=== PATIENT | male | born 1955 | race Two or more races ===

== ENCOUNTER 2020-05-31 05:39 | Inpatient (IN) | payer MEDICARE, MEDICAID ==
[2020-05-31] VITALS (14 sets, daily range): BP systolic 92–141; BP diastolic 52–69
[~2020-05-31] VITALS: Ht 165.1 cm; Wt 88.1 kg
[~2020-05-31 05:39] MED LIST: ALFUZOSIN HCL10 MG PO; ASPIRIN EC81 MG ORAL; GLIPIZIDE PO; LOSARTAN POTASS50 MG ORAL; METFORMIN PO; NEXIUM40 MG ORAL; ZOCOR20 M1 ORAL
--- NOTE | 2020-05-31 06:58 | Anethesia Preoperative Eval ---
Anesthesia Pre-op PMH/ROS General Date of Evaluation: May 31, 2020 Time of Evaluation: 07:31 Anesthesiologist: Jovi ASA Score: ASA 3 Mallampati Score Class I : Soft palate, uvula, fauces, pillars visible Class II: Soft palate, uvula, fauces visible Class III: Soft palate, base of uvula visible Class IV: Only hard plate visible Mallampati Classification: Class III Surgeon: Brian Diagnosis: Abd Pain Surgical Procedure: Prostatectomy Anesthesia History: none Family History: no anesthesia problems Allergies: Coded Allergies: No Known Allergies (Unverified , 05/30/20) Medications: see eMAR Patient NPO?: Yes Past Medical History Cardiovascular: Reports: HTN, other - HL Pulmonary: Reports: SUSI Gastrointestinal/Genitourinary: Reports: GERD, other - BPH Endocrine: Reports: DM Other: obesity - BMI 36 Anesthesia Pre-op Phys. Exam Physician Exam Last Vital Signs Date Time Temp Pulse Resp B/P (MAP) Pulse Ox O2 Delivery O2 Flow Rate FiO2 05/31/20 06:38 Room Air 05/31/20 06:22 98.2 53 18 141/68 (92) 97 Constitutional: NAD Neurologic: CN 2-12 intact Cardiovascular: RRR Respiratory: CTA Gastrointestinal: S/NT/ND Airway Exam Mallampati Score: Class III MO: limited ROM: limited Teeth: missing, intact Anesthesia Pre-op A/P Labs Chemistry Test 05/31/20 06:17 POC Whole Blood Glucose Pending Risk Assessment & Plan Assessment: ASA 3 Plan: GA, SED, GlideScope Status Change Before Surgery: No Pre-Antibiotics Dru Grams Ancef IV Given Within 1 Hr of Incision: Yes Time Given: 08:01 Dank Espana MD May 31, 2020 06:58
[2020-05-31] MEDS ORDERED: Midazolam 2mg/2ml Inj IVP PRN (07:00)
[2020-05-31] MEDS ORDERED: Labetalol 5mg/ml 20ml vial IV PRN (07:00)
[2020-05-31] MEDS ORDERED: Ketorolac 30mg Inj IV PRN ×2 (07:00)
[2020-05-31] MEDS ORDERED: HYDROcodone/Acetamin 7.5/325 tab ORAL PRN (07:00)
[2020-05-31] MEDS ORDERED: ceFAZolin sod 1 GM in NS 55 ML IVPB ONE (07:00)
[2020-05-31] MEDS ORDERED: LORazepam Inj 2mg/ml 1ml IV PRN (07:00)
[2020-05-31] MEDS ORDERED: Acetaminophen (Non formulary) 100 ML IV ONE (07:00)
[2020-05-31] MEDS ORDERED: Atropine Sulfate 0.4mg/ml inj IVP PRN (07:00)
[2020-05-31] MEDS ORDERED: oxyCODONE HCL/Acetaminophen 5/325mg ORAL PRN (07:00)
[2020-05-31] MEDS ORDERED: Metoclopramide 10mg/2ml Inj IVP PRN (07:00)
[2020-05-31] MEDS ORDERED: LR 1000ml 1,000 ML IVLG SCH (07:00)
[2020-05-31] MEDS ORDERED: Hydromorphone 0.5mg/0.5ml inj IVP PRN (07:00)
[2020-05-31] MEDS ORDERED: DiphenhydrAMINE 50mg/ml Inj IVP PRN (07:00)
[2020-05-31] MEDS ORDERED: HYDROcodone/Acetamin 5/325 tab ORAL PRN ×2 (07:00→09:30)
[2020-05-31] MEDS ORDERED: fentaNYL 100 mcg/2 mL IV PRN (07:00)
[2020-05-31] MEDS ORDERED: Meperidine 25mg/1ml Inj (FOR RIGORS ONLY) IV PRN (07:00)
[2020-05-31] MEDS ORDERED: Sodium Chloride 10ml vial INJ ONE (07:04)
[2020-05-31] MEDS ORDERED: Lidocaine 1% MPF 10mg/ml 5ml ONE (07:04)
--- NOTE | 2020-05-31 07:16 | Immediate Post-Op Evaluation ---
Immediate Post-Op Evalulation Immediate Post-Op Evalulation Procedure: Prostatectomy Date of Evaluation: May 31, 2020 Time of Evaluation: 09:54 IV Fluids: 1000 LR Blood Products: 0 Estimated Blood Loss: 300 Urinary Output: 1000 Blood Pressure Systolic: 130 Blood Pressure Diastolic: 61 Pulse Rate: 51 Respiratory Rate: 16 O2 Sat by Pulse Oximetry: 97 Temperature (Fahrenheit): 98 Pain Score (1-10): 2 Nausea: No Vomiting: No Complications 0 Patient Status: awake, reacts, patent, extubated, none Hydration Status: adequate Dru Grams Ancef IV Given Within 1 Hr of Incision: Yes Time Given: 07:31 Dank Espana MD May 31, 2020 07:16
--- NOTE | 2020-05-31 07:17 | 48 Hour Post Anesthesia Eval ---
Post Anesthesia Evaluation Procedure: Prostatectomy Date of Evaluation: May 31, 2020 Time of Evaluation: 12:13 Blood Pressure Systolic: 128 0: 63 Pulse Rate: 54 Respiratory Rate: 18 Temperature (Fahrenheit): 98.2 O2 Sat by Pulse Oximetry: 97 Airway: patent Nausea: No Vomiting: No Pain Intensity: 2 Hydration Status: adequate Cardiopulmonary Status: Stable Mental Status/LOC: patient returned to baseline Follow-up Care/Observations: 0 Post-Anesthesia Complications: 0 Follow-up care needed: ready to discharge Dank Espana MD May 31, 2020 07:17
[2020-05-31] MEDS ORDERED: Sterile Water Irrig 1000ml IRRIG ONE (07:30)
[2020-05-31] MEDS ORDERED: Rocuronium Bromide 50mg/5ml Inj IV ONE (07:30)
[2020-05-31] MEDS ORDERED: ProvayBlue 5mg/ml 10ml amp INJ ONE (07:30)
[2020-05-31] MEDS ORDERED: NS Irrig 1000ml ONE (07:30)
[2020-05-31] MEDS ORDERED: LR 1000ml ONE (07:30)
--- NOTE | 2020-05-31 08:18 | Pre-Procedure Note/Attestation ---
Pre-Procedure Note/Attestation Complete Prior to Procedure Planned Procedure: not applicable Procedure Narrative: open prostatectomy Indications for Procedure Pre-Operative Diagnosis: bph Attestation I attest that I discussed the nature of the procedure; its benefits; risks and complications; and alternatives (and the risks and benefits of such alternatives), prior to the procedure, with the patient (or the patient's legal representative government relations). I attest that, if there was a reasonable possibility of needing a blood tr ansfusion, the patient (or the patient's legal representative government relations) was given the [facility] standardized written summary, pursuant to the Souleymane Rochelle Blood Safety Act ([place] Health and Safety Code # 1645, as amended). I attest that I re-evaluated the patient just prior to the surgery and that there has been no change in the patient's H&P, except as documented below: Luke Torres MD May 31, 2020 08:18
[2020-05-31] MEDS ORDERED: Neostigmine 1mg/ml 10ml Inj ONE (09:01)
[2020-05-31] MEDS ORDERED: Glycopyrrolate 0.2mg/ml 1ml Vial ONE (09:01)
--- NOTE | 2020-05-31 09:27 | Brief Operative Note ---
Immediate Post Operative Note Operative Note Pre-op Diagnosis: bph Procedure: open prostatectomy cystolopaxy Post-op Diagnosis: bladder stones BPH Post-op Diagnosis: same as pre-op Surgeon: Kian Torres Anesthesia: general Specimen: yes Complications: none Condition: stable Fluids: 1000 Estimated Blood Loss: minimal Implant(s) used?: No Luke Torres MD May 31, 2020 09:27
[2020-05-31 10:48] LABS: BASOPHILS % (AUTO) 0.4 % (0.0-2.0); EOSINOPHILS % (AUTO) 0.7 % (0.0-3.0); HEMATOCRIT 35.4 % (42.0-52.0); HEMOGLOBIN 11.8 G/DL (14.2-18.0); LYMPHOCYTES % (AUTO) 15.2 % (20.0-45.0); MEAN CORPUSCULAR VOLUME 91 FL (80-99); MONOCYTES % (AUTO) 5.1 % (1.0-10.0); NEUTROPHILS % (AUTO) 78.6 % (45.0-75.0); PLATELET COUNT 212 K/UL (150-450); RED BLOOD COUNT 3.91 M/UL (4.70-6.10); RED CELL DISTRIBUTION WIDTH 12.1 % (11.6-14.8)
[2020-05-31 10:54] LABS: ANION GAP 6 mmol/L (5-15); BLOOD UREA NITROGEN 15 mg/dL (7-18); CALCIUM 8.4 MG/DL (8.5-10.1); CARBON DIOXIDE 29 MMOL/L (21-32); CHLORIDE 101 MMOL/L (98-107); CREATININE 1.1 MG/DL (0.55-1.30); POTASSIUM 4.3 MMOL/L (3.5-5.1); SODIUM 136 MMOL/L (136-145)
[2020-05-31] MEDS: D5 1/2NS w/KCl 20mEq 1,000 ML IV SCH ×3 (12:52→23:00)
[2020-05-31] MEDS ORDERED: ceFAZolin 2gm/50ml Premix 50 ML IV SCH (16:00)
[2020-05-31] MEDS: ceFAZolin 2gm/50ml Premix 50 ML IV SCH (16:03)
[2020-05-31] MEDS: Docusate 100mg cap ORAL SCH (17:39)
[2020-05-31] MEDS: NovoLOG Insulin Flexpen SUBQ SCH (21:00)
[2020-06-01] VITALS: BP 136/58
[2020-06-01] MEDS: ceFAZolin 2gm/50ml Premix 50 ML IV SCH (00:18)
[2020-06-01 05:30] VITALS: BP 102/56
[2020-06-01] MEDS: NovoLOG Insulin Flexpen SUBQ SCH ×4 (06:30→21:55)
[2020-06-01 07:01] LABS: CALCIUM 8.1 MG/DL (8.5-10.1); CREATININE 1.4 MG/DL (0.55-1.30); POTASSIUM 4.1 MMOL/L (3.5-5.1)
[2020-06-01 07:40] LABS: BASOPHILS % (AUTO) 0.6 % (0.0-2.0); EOSINOPHILS % (AUTO) 1.6 % (0.0-3.0); HEMATOCRIT 32.3 % (42.0-52.0); HEMOGLOBIN 10.9 G/DL (14.2-18.0); LYMPHOCYTES % (AUTO) 30.8 % (20.0-45.0); MEAN CORPUSCULAR VOLUME 89 FL (80-99); MONOCYTES % (AUTO) 9.2 % (1.0-10.0); NEUTROPHILS % (AUTO) 57.8 % (45.0-75.0); PLATELET COUNT 199 K/UL (150-450); RED BLOOD COUNT 3.63 M/UL (4.70-6.10); RED CELL DISTRIBUTION WIDTH 11.9 % (11.6-14.8); WHITE BLOOD COUNT 7.2 K/UL (4.8-10.8)
[2020-06-01 08:00] VITALS: BP 134/63
[2020-06-01] MEDS: Aspirin EC 81mg tab ORAL SCH (09:35)
[2020-06-01] MEDS: Docusate 100mg cap ORAL SCH ×2 (09:35→18:00)
[2020-06-01] MEDS ORDERED: GLIPIZIDE-METF1 EAC2 PO (10:10)
--- NOTE | 2020-06-01 10:30 | History and Physical Report ---
DATE OF ADMISSION: 05/31/2020 HISTORY OF PRESENT ILLNESS: This is a 65-year-old male, who has undergone successful open prostatectomy and cystopexy by Dr. Luke Torres yesterday. Currently, he states he is feeling well. He has a previous history of nasal allergies, GERD, hypertension, diabetes mellitus. ALLERGIES: None. PREVIOUS SURGERIES: None. CURRENT MEDICATIONS: Include Ancef, Tylenol, aspirin, Lipitor, Colace, IV fluids, [place], Dilaudid, insulin sliding scale, and Zofran. REVIEW OF SYSTEMS: Denies any headaches, hematemesis, melena, hematochezia, night sweats or weight loss. PHYSICAL EXAMINATION: GENERAL: Reveals a 65-year-old male. HEENT: Unremarkable. LUNGS: Clear breath sounds bilaterally. ABDOMEN: Soft. EXTREMITIES: There is no edema. NEUROLOGIC: Nonfocal. LABORATORY DATA: Lab testing preoperatively is unremarkable. EKG preoperatively shows RBBB. IMPRESSION: 1. Postoperative day #1 status post open prostatectomy and cystopexy. 2. Hypertension. 3. Diabetes mellitus. 4. Hyperlipidemia. DISCUSSION: Continue current medications and care. His postoperative laboratories are reviewed. Hemoglobin is down to 10.9. We will follow carefully. Creatinine is 1.4, glucose 122. He is on fluids, IV antibiotics and insulin sliding scale. We will follow carefully. Resume home medications. Hold off on metformin, given elevated creatinine. Continue sinus care. We will follow carefully. Richard Henley M.D. DR: JESSICA/ADRIA JOB#: [id number] CC:
[2020-06-01] MEDS: Milk of Magnesia 30ml Ud ORAL PRN (10:33)
[2020-06-01 12:00] VITALS: BP 129/71
[2020-06-01 16:00] VITALS: BP 126/76
[2020-06-01] MEDS ORDERED: NS Irrig 4000ml IRRIG ONE (18:22)
[2020-06-01 20:00] VITALS: BP 124/78
[2020-06-02] VITALS: BP 125/66
[2020-06-02 03:54] VITALS: BP 143/70
[2020-06-02] MEDS: NovoLOG Insulin Flexpen SUBQ SCH ×4 (06:30→20:37)
[2020-06-02 06:52] LABS: BASOPHILS % (AUTO) 0.5 % (0.0-2.0); EOSINOPHILS % (AUTO) 0.7 % (0.0-3.0); HEMATOCRIT 31.2 % (42.0-52.0); HEMOGLOBIN 10.3 G/DL (14.2-18.0); LYMPHOCYTES % (AUTO) 16.1 % (20.0-45.0); MEAN CORPUSCULAR VOLUME 90 FL (80-99); MONOCYTES % (AUTO) 10.1 % (1.0-10.0); NEUTROPHILS % (AUTO) 72.6 % (45.0-75.0); PLATELET COUNT 189 K/UL (150-450); RED BLOOD COUNT 3.48 M/UL (4.70-6.10); RED CELL DISTRIBUTION WIDTH 11.7 % (11.6-14.8); WHITE BLOOD COUNT 7.8 K/UL (4.8-10.8)
[2020-06-02 07:33] LABS: ANION GAP 7 mmol/L (5-15); BLOOD UREA NITROGEN 9 mg/dL (7-18); CALCIUM 8.1 MG/DL (8.5-10.1); CARBON DIOXIDE 28 MMOL/L (21-32); CHLORIDE 100 MMOL/L (98-107); POTASSIUM 3.7 MMOL/L (3.5-5.1); SODIUM 135 MMOL/L (136-145)
[2020-06-02 08:00] VITALS: BP 145/77
[2020-06-02] MEDS: metFORMIN 500mg tab ORAL SCH ×2 (09:00→09:27)
[2020-06-02] MEDS: GlipiZIDE 5mg tab ORAL SCH ×2 (09:00→09:27)
[2020-06-02] MEDS: Aspirin EC 81mg tab ORAL SCH (09:27)
[2020-06-02] MEDS: Docusate 100mg cap ORAL SCH ×2 (09:27→17:44)
[2020-06-02] MEDS: Levofloxacin 500mg tab ORAL SCH (09:30)
--- NOTE | 2020-06-02 11:38 | Pulmonology Progress Note ---
Subjective Interval Events: CBI dc; weathers in place; low grade fever last night Constitutional: Reports: fever HEENT: Repors: no symptoms Respiratory: Reports: no symptoms Cardiovascular: Reports: no symptoms Gastrointestinal/Abdominal: Reports: no symptoms Genitourinary: Reports: no symptoms Allergies: Coded Allergies: No Known Allergies (Unverified , 05/30/20) Objective Last 24 Hour Vital Signs Date Time Temp Pulse Resp B/P (MAP) Pulse Ox O2 Delivery O2 Flow Rate FiO2 06/02/20 11:27 99.5 06/02/20 11:03 99.5 06/02/20 09:00 Room Air 06/02/20 08:00 100.1 81 20 145/77 (99) 95 06/02/20 03:54 99.5 98 18 143/70 (94) 95 06/02/20 00:00 99.5 88 16 125/66 (85) 98 06/01/20 22:00 98.6 06/01/20 21:26 98.6 06/01/20 21:00 Room Air 06/01/20 20:00 99.9 84 18 124/78 (93) 98 06/01/20 17:14 98.1 06/01/20 16:00 97.9 86 20 126/76 (93) 95 06/01/20 12:00 98.1 84 20 129/71 (90) 96 Intake and Output 06/01/20 06/02/20 19:00 07:00 Intake Total 950 ml 850 ml Output Total 1400 ml 1200 ml Balance -450 ml -350 ml Intake Oral 950 ml 850 ml Output Urine Total 1400 ml 1200 ml General Appearance: no acute distress HEENT: normocephalic Respiratory: chest wall non-tender, lungs clear Cardiovascular: normal peripheral pulses, normal rate Abdomen: normal bowel sounds Microbiology Date/Time Source Procedure Growth Status 05/31/20 06:00 Nasal Nares MRSA Culture - Final NO METHICILLIN RESISTANT STAPH AUREUS... Complete Laboratory Tests 06/01/20 16:51: POC Whole Blood Glucose 120H 06/01/20 21:54: POC Whole Blood Glucose 142H 06/02/20 05:35: White Blood Count 7.8, Red Blood Count 3.48L, Hemoglobin 10.3L, Hematocrit 31.2L , Mean Corpuscular Volume 90, Mean Corpuscular Hemoglobin 29.7, Mean Corpuscular Hemoglobin Concent 33.2, Red Cell Distribution Width 11.7, Platelet Count 189, Mean Platelet Volume 6.4L, Neutrophils (%) (Auto) 72.6, Lymphocytes (%) (Auto) 16.1L, Monocytes (%) (Auto) 10.1H, Eosinophils (%) (Auto) 0.7, Basophils (%) (Auto) 0.5, Sodium Level 135L, Potassium Level 3.7, Chloride Level 100, Carbon Dioxide Level 28, Anion Gap 7, Blood Urea Nitrogen 9, Creatinine 1.0, Estimat Glomerular Filtration Rate > 60, Glucose Level 159H, Calcium Level 8.1L 06/02/20 05:37: POC Whole Blood Glucose 156H 06/02/20 11:24: POC Whole Blood Glucose 126H Current Medications Medications (Trade) Dose Ordered Sig/Silvia Route PRN Reason Start Time Stop Time Status Last Admin Dose Admin Acetaminophen (Tylenol) 650 mg Q6H PRN ORAL Mild Pain (Pain Scale 1-3) 05/31/20 09:30 06/30/20 09:29 06/02/20 10:33 Acetaminophen/ Hydrocodone Bitart ([place] 5/325) 1 tab Q4H PRN ORAL Moderate Pain (Pain Scale 4-6) 05/31/20 09:30 06/07/20 09:29 06/02/20 04:47 Aspirin (Ecotrin) 81 mg DAILY ORAL 06/01/20 09:00 07/16/20 08:59 06/02/20 09:27 Atorvastatin Calcium (Lipitor) 10 mg BEDTIME ORAL 05/31/20 21:00 08/29/20 20:59 06/01/20 20:56 Bisacodyl (Dulcolax) 10 mg DAILYPRN PRN RECTAL Constipation 06/01/20 09:00 08/30/20 08:59 Diphenhydramine HCl (Benadryl) 25 mg Q6H PRN ORAL Itching 06/01/20 20:45 07/01/20 20:44 06/01/20 20:56 Docusate Sodium (Colace) 100 mg TWICE A DAY ORAL 05/31/20 18:00 06/30/20 17:59 06/02/20 09:27 Glipizide (Glucotrol) 5 mg DAILY ORAL 06/02/20 09:00 07/02/20 08:59 Hydromorphone HCl (Dilaudid) 2 mg Q3H PRN IVP pain score 7-10 05/31/20 09:30 06/07/20 09:29 06/02/20 10:57 Insulin Aspart (NovoLOG) BEFORE MEALS AND HS SUBQ 05/31/20 21:00 08/29/20 20:59 Levofloxacin (Levaquin) 500 mg DAILY ORAL 06/02/20 09:15 06/09/20 09:14 06/02/20 09:30 Magnesium Hydroxide (Mom) 30 ml DAILYPRN PRN ORAL Constipation 06/01/20 09:00 07/01/20 08:59 06/01/20 10:33 Metformin HCl (Glucophage) 500 mg DAILY ORAL 06/02/20 09:00 07/02/20 08:59 Ondansetron HCl (Zofran) 4 mg Q6H PRN IVP Nausea & Vomiting 05/31/20 09:30 06/30/20 09:29 06/01/20 19:49 Temazepam (RestoriL) 7.5 mg DAILYPRN PRN ORAL Insomnia 05/31/20 09:30 06/07/20 09:29 Assessment/Plan Assessment/Plan IMPRESSION: 1. Postoperative day #2 status post open prostatectomy and cystopaxy. 2. Hypertension. 3. Diabetes mellitus. 4. Hyperlipidemia. DISCUSSION: Continue current medications and care. His postoperative laboratories are reviewed. I will follow carefully. He is on fluids, IV antibiotics and insulin sliding scale. Resume home medications. DC planning for home in AM Check labs in AM Pat Metzger Omar Syed MD Jun 02, 2020 11:38
[2020-06-02 12:00] VITALS: BP 98/50
[2020-06-02 16:00] VITALS: BP 136/63
[2020-06-02 20:00] VITALS: BP 133/66
[2020-06-02] MEDS: Milk of Magnesia 30ml Ud ORAL PRN (23:03)
[2020-06-03] VITALS: BP 141/67
--- NOTE | 2020-06-03 01:30 | Operative Note - Dictated ---
DATE OF OPERATION: 05/31/2020 PREOPERATIVE DIAGNOSES: Bladder stone and BPH. POSTOPERATIVE DIAGNOSES: Bladder stone and BPH. OPERATION: Open retropubic prostatectomy, cystolitholapaxy. ELECTRONICS SYSTEM MECHANIC: Luke Torres MD ANESTHESIA: General. FINDINGS: Enlarged prostate with large bladder stones. INDICATIONS FOR SURGERY: The patient had recurrent urinary tract infections and had evaluation showing large bladder stones and severely enlarged prostate. Treatment options were explained to him in great length including all potential complications. He understands the nature of the procedure. He signed the consent. DESCRIPTION OF PROCEDURE: He was brought to the operative room, placed in supine position, prepped and draped in standard fashion. Under general anesthesia, a Pfannenstiel incision was made. The retropubic space was opened and prostate was mobilized from the surrounding adhesions. Using electrocautery, prostate was was controlled by [id number] 0 Vicryl suture. Capsule was opened and prostate adenoma was enucleated in standard fashion using manual blunt dissection, External sphincter was carefully preserved. of the adenoma was incised with Mesha scissors. The ureters were carefully preserved as well as the bladder neck. Using ring forceps, stones were removed from the bladder. Consent . Review of the bladder showed no evidence of residual stones. The capsule of the prostate was reapproximated with a running 2-0 Vicryl suture. Only 24 three-way Webster catheter. Bladder was irrigated. There was no evidence of bleeding. . The wound was closed in three layers with julian for the skin. Estimated blood loss was approximately 50 to 100 mL. Sponge count, instrument count was correct. Luke Torres M.D. DR: BRIE JOB#: [id number] CC:
[2020-06-03 04:00] VITALS: BP 124/70
[2020-06-03] MEDS: NovoLOG Insulin Flexpen SUBQ SCH ×2 (05:40→11:30)
[2020-06-03 08:00] VITALS: BP 146/74
[2020-06-03] MEDS: GlipiZIDE 5mg tab ORAL SCH (09:23)
[2020-06-03] MEDS: metFORMIN 500mg tab ORAL SCH (09:23)
[2020-06-03] MEDS: Levofloxacin 500mg tab ORAL SCH (09:23)
[2020-06-03] MEDS: Docusate 100mg cap ORAL SCH (09:23)
[2020-06-03] MEDS: Aspirin EC 81mg tab ORAL SCH (09:23)
--- NOTE | 2020-06-03 11:02 | Pulmonology Progress Note ---
Subjective Interval Events: weathers in place; no fever last night Constitutional: Reports: fever HEENT: Repors: no symptoms Respiratory: Reports: no symptoms Cardiovascular: Reports: no symptoms Gastrointestinal/Abdominal: Reports: no symptoms Genitourinary: Reports: no symptoms Allergies: Coded Allergies: No Known Allergies (Unverified , 05/30/20) Objective Last 24 Hour Vital Signs Date Time Temp Pulse Resp B/P (MAP) Pulse Ox O2 Delivery O2 Flow Rate FiO2 06/03/20 09:00 Room Air 06/03/20 08:00 99.2 80 18 146/74 (98) 98 06/03/20 04:00 98.9 78 18 124/70 (88) 95 06/03/20 00:00 99.3 86 17 141/67 (91) 92 06/02/20 21:00 Room Air 06/02/20 20:00 99.2 78 18 133/66 (88) 92 06/02/20 19:01 98.7 06/02/20 16:00 98.7 68 17 136/63 (87) 94 06/02/20 12:00 99.3 62 19 98/50 (66) 94 06/02/20 11:27 99.5 06/02/20 11:03 99.5 Intake and Output 06/02/20 06/03/20 19:00 07:00 Intake Total 750 ml 1600 ml Output Total 600 ml 1300 ml Balance 150 ml 300 ml Intake Oral 750 ml 1600 ml Output Urine Total 600 ml 1300 ml # Bowel Movements 1 General Appearance: no acute distress HEENT: normocephalic Respiratory: chest wall non-tender, lungs clear Cardiovascular: normal peripheral pulses, normal rate Abdomen: normal bowel sounds Laboratory Tests 06/02/20 11:24: POC Whole Blood Glucose 126H 06/02/20 16:20: POC Whole Blood Glucose 91 06/02/20 20:32: POC Whole Blood Glucose 111H 06/03/20 05:39: POC Whole Blood Glucose 119H Current Medications Medications (Trade) Dose Ordered Sig/Silvia Route PRN Reason Start Time Stop Time Status Last Admin Dose Admin Acetaminophen (Tylenol) 650 mg Q6H PRN ORAL Mild Pain (Pain Scale 1-3) 05/31/20 09:30 06/30/20 09:29 06/02/20 10:33 Acetaminophen/ Hydrocodone Bitart ([place] 5/325) 1 tab Q4H PRN ORAL Moderate Pain (Pain Scale 4-6) 05/31/20 09:30 06/07/20 09:29 06/02/20 04:47 Aspirin (Ecotrin) 81 mg DAILY ORAL 06/01/20 09:00 07/16/20 08:59 06/03/20 09:23 Atorvastatin Calcium (Lipitor) 10 mg BEDTIME ORAL 05/31/20 21:00 08/29/20 20:59 06/01/20 20:56 Bisacodyl (Dulcolax) 10 mg DAILYPRN PRN RECTAL Constipation 06/01/20 09:00 08/30/20 08:59 Diphenhydramine HCl (Benadryl) 25 mg Q6H PRN ORAL Itching 06/01/20 20:45 07/01/20 20:44 06/01/20 20:56 Docusate Sodium (Colace) 100 mg TWICE A DAY ORAL 05/31/20 18:00 06/30/20 17:59 06/03/20 09:23 Glipizide (Glucotrol) 5 mg DAILY ORAL 06/02/20 09:00 07/02/20 08:59 06/03/20 09:23 Hydromorphone HCl (Dilaudid) 2 mg Q3H PRN IVP pain score 7-10 05/31/20 09:30 06/07/20 09:29 06/02/20 18:31 Insulin Aspart (NovoLOG) BEFORE MEALS AND HS SUBQ 05/31/20 21:00 08/29/20 20:59 Levofloxacin (Levaquin) 500 mg DAILY ORAL 06/02/20 09:15 06/09/20 09:14 06/03/20 09:23 Magnesium Hydroxide (Mom) 30 ml DAILYPRN PRN ORAL Constipation 06/01/20 09:00 07/01/20 08:59 06/02/20 23:03 Metformin HCl (Glucophage) 500 mg DAILY ORAL 06/02/20 09:00 07/02/20 08:59 06/03/20 09:23 Ondansetron HCl (Zofran) 4 mg Q6H PRN IVP Nausea & Vomiting 05/31/20 09:30 06/30/20 09:29 06/01/20 19:49 Temazepam (RestoriL) 7.5 mg DAILYPRN PRN ORAL Insomnia 05/31/20 09:30 06/07/20 09:29 Assessment/Plan Assessment/Plan IMPRESSION: 1. Postoperative day #3 status post open prostatectomy and cystopaxy. 2. Hypertension. 3. Diabetes mellitus. 4. Hyperlipidemia. DISCUSSION: Continue current medications and care. DC home Leave weathers in place Levaquin, colace and [place] Richard Henley M.D. Richard Henley MD Jun 03, 2020 11:02
[2020-06-03] MEDS ORDERED: LEVOFLOXACIN500 MG ORAL (11:03)
[2020-06-03] MEDS ORDERED: COLACE100 MG ORAL (11:03)
[2020-06-03] MEDS ORDERED: HYDROCODON-ACE1 EA15 ORAL (11:03)
[2020-06-03 12:00] VITALS: BP 135/75
[2020-06-03] MEDS ORDERED: NS Irrig 4000ml IRRIG ONE (13:39)
--- NOTE | 2020-06-05 15:42 | Discharge Summary ---
Discharge Summary Discharge Summary _ DATE OF ADMISSION: 05/31/2020 DATE OF DISCHARGE: 06/03/2020 DISCHARGED BY: REASON FOR ADMISSION: 65 years old male with recurrent urinary tract infection found upon further evaluation to have large bladder stone and severely enlarged prostate. Patient was consented and subsequently admitted for elective surgery. Patient undergone on 05/31 open retropubic prostatectomy, cystolitholapaxy. CONSULTANTS: urologist Dr Torres [facility] COURSE: Course of recovery was uneventful. Patient was provided with IV fluids. Pain management was addressed. Patient received intraoperative antibiotic. Patient was on continuous bladder irrigation. Blood sugar was managed with sliding scale of insulin. Home medication resumed. Metformin was hold given elevated creatinine. Creatinine 1.4 on 06/01 and down to 1.0 on 06/02. Pain management was addressed as needed. Ambulation and mobilization was encouraged. Incentive spirometry was encouraged while in the bed every 1 hour x 10. Diet was slowly started and was advanced as tolerated. Antiemetic were on board as needed. Patient was able to tolerate diet. Bowel regimen instituted. Patient clinically stabilized and was ready for discharge. Continuous bladder irrigation was discontinues after urine cleared. No clots. Webster was left in place per urologist . Discharge instruction and prescription provided. Patient to follow-up with urologist as outpatient as scheduled. FINAL DIAGNOSES: Bladder stone BPH Status post open retropubic prostatectomy, cystolitholapaxy. Hypertension Diabetes mellitus Hyperlipidemia DISCHARGE MEDICATIONS: See Medication Reconciliation list. DISCHARGE INSTRUCTIONS: Patient was discharged home. Follow-up with urologist as scheduled. I have been assigned to dictate discharge summary for this account. I was not involved in the patient's management. Padmini Wang NP Jun 05, 2020 15:42
== END 2020-06-03 13:40 | disposition home or self-care (01) | DRG 708 ==
LOC: SDSOVERFLO 05:39 → 3E 11:03
PROC: 0TCB0ZZ Extirpation of Matter from Bladder, Open Approach (ICD-10-PCS; principal; 2020-05-31 07:30)
PROC: 0VT00ZZ Resection of Prostate, Open Approach (ICD-10-PCS; principal; 2020-05-31 07:30)
DX: N40.1 Benign prostatic hyperplasia with lower urinary tract symptoms (principal); I10 Essential (primary) hypertension; E11.9 Type 2 diabetes mellitus without complications; K21.9 Gastro-esophageal reflux disease without esophagitis; E78.5 Hyperlipidemia, unspecified; N21.0 Calculus in bladder
CPT/HCPCS: 36415; 80048; 82962; 85025; 86850; 86900; 86901; 87081; 94003; 94150; J1815; J2180; J2250; J2405; J2710; U0002

== ENCOUNTER → 2020-06-05 | Emergency (ER) | payer MEDICARE, MEDICAID ==
[~2020-06-05] MED LIST changes: +COLACE100 MG ORAL; +GLIPIZIDE-METF1 EAC2 PO; +HYDROCODON-ACE1 EA15 ORAL; +LEVOFLOXACIN500 MG ORAL
--- NOTE | 2020-06-05 09:57 | NUR ---
ED Nurse Note: pt called but not ready to come in
--- NOTE | 2020-06-05 14:46 | Emergency Room Report ---
History of Present Illness General Chief Complaint: To Be Triaged Present Illness Allergies: Coded Allergies: No Known Allergies (Unverified , 05/30/20) COVID-19 Screening Contact w/high risk pt: No Experienced COVID-19 symptoms?: No Nursing Documentation-H Hx Cardiac Problems: Yes Hx Hypertension: Yes Hx Diabetes: Yes - type 2 Hx Cancer: No Hx Gastrointestinal Problems: Yes Hx Neurological Problems: No Medical Decision Making ER Course Patient inadvertently went to the emergency department. He meant to go to the outpatient offices across the street. Pointed in the correct direction of the office that he was looking forward. He was never actually evaluated by myself. Referrals: NOT CHOSEN IPA/,REFERRING (PCP) Kevin Paez M.D. Jun 05, 2020 14:46
== END | disposition left against medical advice (07) ==
LOC: EMR 10:15
DX: Z53.21 Procedure and treatment not carried out due to patient leaving prior to being seen by health care provider (principal)